=== PATIENT | female | born 1955 | race Caucasian/White ===

== ENCOUNTER → 2018-01-07 | Outpatient (CLI) | payer OTHER ==
[~2018-01-07] MED LIST: ACEDIPPM; ALPR.5 PO; AMOCLA875 PO; ATOM18 PO; ATOM40 PO; ATOM60 PO; Ativan0.5 MG PO; CARI350 PO; CLON.5; CLON.5 PO; CLON1 PO; CODACE30 PO; CYCL10 PO; DIVA500EC; DIVA500EC PO; DIVA500ER PO; DULO60 PO; GABA300; GABA600 PO; HYDACE10B PO; HYDACE5; HYDACE5 PO; HYDACE7.5 PO; HYDCOR2.5C PR; IBUP200 PO; LORA1 PO; METPHE20 PO; NAPR500 PO; OLAN5 PO; OMEP20ER PO; OXYACE5T PO; PANT40 PO; PARO25; PRED10 PO; PROM25 PO; Pepcid40 MG PO; QUET25 PO; RXHYDACE PO; TRAZ100; TRAZ100 PO; TRAZ50 PO; VENL25 PO
[2018-01-07 12:44] LABS: BASOPHILS PERCENT AUTO 0 % (0-2); EOSINOPHILS ABSOLUTE AUTO 0.07 K/mm3 (0.00-0.68); EOSINOPHILS PERCENT AUTO 1 % (0-6); Hemoglobin 12.3 g/dL (11.5-16.0); IMMATURE GRAN ABSOLUTE AUTO 0.04 K/mm3 (0.00-0.10); IMMATURE GRAN PERCENT AUTO 1 % (0-1); LYMPHOCYTES ABSOLUTE AUTO 1.35 K/mm3 (0.84-5.20); LYMPHOCYTES PERCENT AUTO 25 % (21-46); MONOCYTES ABSOLUTE AUTO 0.42 K/mm3 (0.16-1.47); MONOCYTES PERCENT AUTO 8 % (4-13); Mean Corpuscular HGB 28.7 pg (26.0-34.0); Mean Corpuscular HGB Conc 32.4 g/dL (31.5-36.5); Mean Corpuscular Volume 89 fL (80-100); Mean Platelet Volume 9.4 fL (9.1-12.4); NEUTROPHILS ABSOLUTE AUTO 3.61 K/mm3 (1.96-9.15); NEUTROPHILS PERCENT AUTO 66 % (41-73); Platelet Count 298 K/mm3 (150-400); RDW Coefficient Variation 14.9 % (11.7-14.2); RDW Standard Deviation 47.2 fL (35.1-46.3); Red Blood Cell Count 4.28 M/mm3 (3.80-5.20); White Blood Cell Count 5.49 K/mm3 (4.00-11.30)
[2018-01-07 12:56] LABS: Alanine Aminotransfer (ALT/SGP 43 U/L (12-78); Albumin, Blood 3.8 g/dL (3.4-5.0); Albumin/Globulin Ratio 1.1 (0.8-1.8); Alk Phos 144 U/L (40-126); Anion Gap 9 mmol/L (6-16); Aspartate Aminotrans (AST/SGOT 29 U/L (12-37); Bilirubin, Total 0.4 mg/dL (0.1-1.0); Blood Urea Nitrogen 16 mg/dL (8-24); Bun/Creatinine Ratio 17.4 (12.0-20.0); CO2, Blood 27 mmol/L (21-32); Calcium, Blood 9.4 mg/dL (8.5-10.1); Chloride, Blood 105 mmol/L (98-108); Creatinine, Blood 0.92 mg/dL (0.40-1.00); Globulin, Blood 3.6 g/dL (2.2-4.0); Glomerular Filtration Rate >60 (60-); Glucose, Blood 103 mg/dL (70-99); Sodium, Blood 141 mmol/L (136-145); Total Protein, Blood 7.4 g/dL (6.4-8.2); Uric Acid, Blood 6.3 mg/dL (2.6-6.0)
== END ==
LOC: LAB EV 12:39
PROVIDERS: Physician Assistant Medical
DX: L03.119 Cellulitis of unspecified part of limb (principal)
CPT/HCPCS: 80053; 84550; 85025

== ENCOUNTER 2020-08-01 20:48 | Emergency (ER) | payer SELFPAY ==
[~2020-08-01] VITALS: Ht 175.3 cm; Wt 108.9 kg
[~2020-08-01 20:48] MED LIST changes: +ATORVASTATIN CA20 MG; +CYCL10; +HYDHCL25; +LATUDA120 MG; +Lamictal150 MG PO; +PROZAC40 MG
== END 2020-08-01 23:22 | disposition home or self-care (01) ==
LOC: ER 20:48
DX: S01.01XA Laceration without foreign body of scalp, initial encounter (principal); M54.2 Cervicalgia; F31.9 Bipolar disorder, unspecified; F90.9 Attention-deficit hyperactivity disorder, unspecified type; Z88.5 Allergy status to narcotic agent; Z79.899 Other long term (current) drug therapy; W01.198A Fall on same level from slipping, tripping and stumbling with subsequent striking against other object, initial encounter; Y93.89 Activity, other specified
CPT/HCPCS: 12002; 70450; 72125; 99284-25

== ENCOUNTER 2021-06-14 05:25 | Emergency (ER) | payer BC ==
[~2021-06-14] VITALS: Ht 170.2 cm; Wt 104.3 kg
== END 2021-06-14 07:24 | disposition home or self-care (01) ==
LOC: ER 05:25
DX: S67.193A Crushing injury of left middle finger, initial encounter (principal); S68.123A Partial traumatic metacarpophalangeal amputation of left middle finger, initial encounter; G80.8 Other cerebral palsy; Z23 Encounter for immunization; Z88.5 Allergy status to narcotic agent; Z79.899 Other long term (current) drug therapy; W23.0XXA Caught, crushed, jammed, or pinched between moving objects, initial encounter
CPT/HCPCS: 26951; 73120; 90471; 90714; 99283-25

== ENCOUNTER 2021-06-25 11:49 | Emergency (ER) | payer BC ==
[~2021-06-25] VITALS: Ht 172.7 cm; Wt 103.9 kg
== END 2021-06-25 13:56 | disposition home or self-care (01) ==
LOC: ER 11:49
DX: M79.645 Pain in left finger(s) (principal); Z88.5 Allergy status to narcotic agent; Z79.899 Other long term (current) drug therapy
CPT/HCPCS: 73140; 99283-25

== ENCOUNTER 2023-08-12 13:22 | Inpatient (IN) | payer OTHER ==
[~2023-08-12] VITALS: Ht 172.7 cm; Wt 94.4 kg
[~2023-08-12 13:22] MED LIST changes: -CYCL10; -HYDHCL25; +HYDHCL25 PO; -PROZAC40 MG; +PROZAC40 MG PO
[2023-08-12 14:19] LABS: BASOPHILS ABSOLUTE AUTO 0.05 K/mm3 (0.00-0.23); BASOPHILS PERCENT AUTO 0 % (0-2); EOSINOPHILS ABSOLUTE AUTO 0.02 K/mm3 (0.00-0.68); EOSINOPHILS PERCENT AUTO 0 % (0-6); Hematocrit 34.8 % (33.0-51.0); Hemoglobin 11.4 g/dL (11.5-16.0); IMMATURE GRAN ABSOLUTE AUTO 0.13 K/mm3 (0.00-0.10); IMMATURE GRAN PERCENT AUTO 1 % (0-1); LYMPHOCYTES ABSOLUTE AUTO 0.96 K/mm3 (0.84-5.20); LYMPHOCYTES PERCENT AUTO 6 % (21-46); MONOCYTES ABSOLUTE AUTO 0.87 K/mm3 (0.16-1.47); MONOCYTES PERCENT AUTO 6 % (4-13); Mean Corpuscular HGB 29.7 pg (26.0-34.0); Mean Corpuscular HGB Conc 32.8 g/dL (31.5-36.5); Mean Corpuscular Volume 91 fL (80-100); NEUTROPHILS ABSOLUTE AUTO 13.12 K/mm3 (1.96-9.15); NEUTROPHILS PERCENT AUTO 87 % (41-73); Platelet Count 331 K/mm3 (150-400); RDW Coefficient Variation 13.4 % (11.7-14.2); RDW Standard Deviation 44.4 fL (35.1-46.3); Red Blood Cell Count 3.84 M/mm3 (3.80-5.20); White Blood Cell Count 15.15 K/mm3 (4.00-11.30)
[2023-08-12 14:26] LABS: Albumin, Blood 3.5 g/dL (3.4-5.0); Albumin/Globulin Ratio 1.2 (0.8-1.8); Bilirubin, Total 0.4 mg/dL (0.1-1.0); Bun/Creatinine Ratio 6.3 (12.0-20.0); Calcium, Blood 8.8 mg/dL (8.5-10.1); Creatinine, Blood 1.26 mg/dL (0.40-1.00); Globulin, Blood 2.8 g/dL (2.2-4.0); Potassium, Blood 3.8 mmol/L (3.5-5.5); Total Protein, Blood 6.3 g/dL (6.4-8.2)
[2023-08-12 15:53] LABS: Influenza A, PCR NEGATIVE (NEGATIVE); Influenza B, PCR NEGATIVE (NEGATIVE); Resp Syncytial Virus, PCR NEGATIVE (NEGATIVE)
[2023-08-12 15:55] LABS: SARS-Cov-2 (COVID-19) PCR, MMC POSITIVE (NEGATIVE)
[2023-08-12] MEDS ORDERED: ZIPR40 PO (19:25)
[2023-08-12] MEDS ORDERED: HYDHCL25 PO (19:27)
[2023-08-12 20:29] VITALS: BP 136/71
[2023-08-13 01:46] VITALS: BP 130/57
--- NOTE | 2023-08-13 04:29 | NUR ---
SHIFT SUMMARY 67 YR F ADMITTED ON 08/12/23 FOR SEVERE SEPSIS. FULL CODE. NO ACUTE CHANGES THIS SHIFT. PT HAD A SYNCOPE EPISODE WHILE SITTING ON THE BEDSIDE COMMODE. IT WAS WITNESSED BY THE ALTERATION WORKROOM SUPERVISOR WHO SAID THE EPISODE WAS VERY BRIEF. PT APPEARS TO HAVE RESTED COMFORTABLY FOR MOST OF THIS SHIFT. SHE IS PLEASANT AND COOPERATIVE BUT SEEMS A BIT CONFUSED AT TIMES.
[2023-08-13 05:42] LABS: BASOPHILS ABSOLUTE AUTO 0.02 K/mm3 (0.00-0.23); BASOPHILS PERCENT AUTO 0 % (0-2); EOSINOPHILS ABSOLUTE AUTO 0.01 K/mm3 (0.00-0.68); EOSINOPHILS PERCENT AUTO 0 % (0-6); Hematocrit 26.9 % (33.0-51.0); IMMATURE GRAN ABSOLUTE AUTO 0.07 K/mm3 (0.00-0.10); IMMATURE GRAN PERCENT AUTO 1 % (0-1); LYMPHOCYTES ABSOLUTE AUTO 1.31 K/mm3 (0.84-5.20); LYMPHOCYTES PERCENT AUTO 11 % (21-46); MONOCYTES ABSOLUTE AUTO 1.08 K/mm3 (0.16-1.47); MONOCYTES PERCENT AUTO 9 % (4-13); Mean Corpuscular HGB 29.4 pg (26.0-34.0); Mean Corpuscular HGB Conc 33.5 g/dL (31.5-36.5); Mean Corpuscular Volume 88 fL (80-100); NEUTROPHILS ABSOLUTE AUTO 9.22 K/mm3 (1.96-9.15); NEUTROPHILS PERCENT AUTO 79 % (41-73); Platelet Count 220 K/mm3 (150-400); RDW Coefficient Variation 13.6 % (11.7-14.2); RDW Standard Deviation 43.7 fL (35.1-46.3); Red Blood Cell Count 3.06 M/mm3 (3.80-5.20); White Blood Cell Count 11.71 K/mm3 (4.00-11.30)
[2023-08-13 06:06] LABS: Magnesium, Blood 2.1 mg/dL (1.6-2.4)
[2023-08-13 06:07] LABS: Bun/Creatinine Ratio 11.3 (12.0-20.0); Calcium, Blood 8.6 mg/dL (8.5-10.1); Creatinine, Blood 1.15 mg/dL (0.40-1.00); Potassium, Blood 3.7 mmol/L (3.5-5.5)
[2023-08-13 07:17] VITALS: BP 141/67
--- NOTE | 2023-08-13 12:49 | NUR ---
PT CALLED STAFF TO ROOM SHE WAS VOMITING, COMPLETE LINEN CHANGE DONE. ZOFRAN GIVEN ORDERED PER MD. PT ALSO C/O HEADACHE AND EARS HURTING.
--- NOTE | 2023-08-13 13:04 | NUR ---
PT CALLED STAFF TO ROOM SHE WAS VOMITING. PT CLEANED UP, LINEN CHANGE DONE. PLACED CALL TO MD. ORDERS RECEIVED FOR ANTI EMETIC.
[2023-08-13 15:18] VITALS: BP 132/74
--- NOTE | 2023-08-13 18:25 | NUR ---
SHIFT SUMMARY A&O X 3-4 WITH MOMENTS OF FORGETFULNESS THOUGH REORIENTS WELL, VSS. ENCOURAGED PT TO GET UP TO USE EITHER RESTROOM OR BSC WHEN NEEDED. IS 1 PERSON ASSIST WITH FWW. PT HAS BEEN NAUSEATED OFF & ON THIS SHIFT WITH SMALL AMOUNTS OF DARK BROWN TO ALMOST BLACK WATERY EMESIS. IT IS NOTED THAT HER H&H ON ADMIT WAS 11.4 & 39.8 & TODAY'S H&H 9.0 & 26.9. MEDICATED FOR NAUSEA ONCE WITH GOOD RELIEF. IS PLEASANT & COOPERATIVE WITH ALL CARE.
[2023-08-13 19:18] VITALS: BP 159/70
[2023-08-14] VITALS (10 sets, daily range): BP systolic 110–138; BP diastolic 52–64
--- NOTE | 2023-08-14 04:01 | NUR ---
SHIFT SUMMARY ADMITTED FOR NEAR SYNCOPE. FULL CODE. ENHANCED PRECAUTIONS FOR COVID+. ANTIBIOTICS ARE SCHEDULED. NS INFUSING ORDERED. A&O X3-4, FORGETFUL AT TIMES. 1 ASSIST W/FWW - BRP. SHE DID FALL AT HOME, AND HAS BRUISES ON HER BACK. HX: CEREBRAL PALSY
[2023-08-14 06:58] LABS: BASOPHILS ABSOLUTE AUTO 0.02 K/mm3 (0.00-0.23); BASOPHILS PERCENT AUTO 0 % (0-2); EOSINOPHILS ABSOLUTE AUTO 0.03 K/mm3 (0.00-0.68); EOSINOPHILS PERCENT AUTO 0 % (0-6); Hemoglobin 6.6 g/dL (11.5-16.0); IMMATURE GRAN ABSOLUTE AUTO 0.05 K/mm3 (0.00-0.10); IMMATURE GRAN PERCENT AUTO 1 % (0-1); LYMPHOCYTES ABSOLUTE AUTO 1.72 K/mm3 (0.84-5.20); LYMPHOCYTES PERCENT AUTO 21 % (21-46); MONOCYTES PERCENT AUTO 10 % (4-13); Mean Corpuscular HGB 29.6 pg (26.0-34.0); Mean Corpuscular Volume 90 fL (80-100); Mean Platelet Volume 9.2 fL (9.1-12.4); NEUTROPHILS ABSOLUTE AUTO 5.57 K/mm3 (1.96-9.15); NEUTROPHILS PERCENT AUTO 68 % (41-73); Platelet Count 148 K/mm3 (150-400); RDW Coefficient Variation 13.7 % (11.7-14.2); Red Blood Cell Count 2.23 M/mm3 (3.80-5.20); White Blood Cell Count 8.19 K/mm3 (4.00-11.30)
[2023-08-14 07:24] LABS: Albumin, Blood 2.5 g/dL (3.4-5.0); Anion Gap 4 mmol/L (6-16); Blood Urea Nitrogen 15 mg/dL (8-24); Bun/Creatinine Ratio 18.3 (12.0-20.0); CO2, Blood 27 mmol/L (21-32); Calcium, Blood 8.2 mg/dL (8.5-10.1); Chloride, Blood 105 mmol/L (98-108); Creatinine, Blood 0.82 mg/dL (0.40-1.00); Glomerular Filtration Rate 79 (60-); Glucose, Blood 115 mg/dL (70-99); Phosphorus, Blood 2.2 mg/dL (2.5-4.9); Potassium, Blood 4.3 mmol/L (3.5-5.5); Sodium, Blood 136 mmol/L (136-145)
--- NOTE | 2023-08-14 18:49 | NUR ---
SHIFT SUMMARY IS A&O X 4. H&H TODAY 6.6 & 20.0, TRANSFUSED 1 UNIT PRBC'S. FRANK WELL. PT STATED SHE FELT BETTER AFTER TRANSFUSION. DID C/O EPIGASTRIC PAIN AFTER ATTEMPTING TO EAT BFAST. MD REQUESTED GI CONSULT PER AN ORDER. GI DOC, DR. CARSON CONTACTED AND IS AWARE. PT TO BE NPO AFTER MN FOR POSSIBLE GI PROCEDURE IN THE AM. IV PROTONIX PUSHES ORDERED AND GIVEN, PT STATES SHE FEELS BETTER AFTER INITIATING PROTONIX. PT DID STATE THOUGH THAT SHE JUST PREFERRED TO HAVE ICE CHIPS, JELLO & PUDDING TO AVOID STOMACH UPSET. PT IS STDBY ASSIST W/FWW WHEN UP FOR RESTROOM USE. IS PLEASANT & COOPERATIVE WITH ALL CARE. IS [place]. PLAN IS FOR DC HOME WHEN CLINICALLY STABLE. BED IS IN LOW POSITION, CALL LIGHT WITHIN REACH. REPOSITIONED PT OFF & ON TODAY FOR COMFORT.
[2023-08-15] VITALS (18 sets, daily range): BP systolic 91–159; BP diastolic 46–114
--- NOTE | 2023-08-15 07:32 | NUR ---
Shift Summary Pt NPO since 0000 in anticipation for scope procedure today to investigate possible GI bleed. No c/o of chest or epigastric pain t/o shift, although she did c/o pain in her back and L shoulder. Purewick in place t/o the night draining urine. Pt in contact precautions for Covid. AOx4, pleasant and cooperative.
[2023-08-15 08:57] LABS: BASOPHILS ABSOLUTE AUTO 0.05 K/mm3 (0.00-0.23); BASOPHILS PERCENT AUTO 1 % (0-2); EOSINOPHILS ABSOLUTE AUTO 0.12 K/mm3 (0.00-0.68); EOSINOPHILS PERCENT AUTO 2 % (0-6); Hematocrit 19.1 % (33.0-51.0); Hemoglobin 6.2 g/dL (11.5-16.0); IMMATURE GRAN ABSOLUTE AUTO 0.08 K/mm3 (0.00-0.10); IMMATURE GRAN PERCENT AUTO 1 % (0-1); LYMPHOCYTES ABSOLUTE AUTO 1.19 K/mm3 (0.84-5.20); LYMPHOCYTES PERCENT AUTO 17 % (21-46); MONOCYTES ABSOLUTE AUTO 0.69 K/mm3 (0.16-1.47); MONOCYTES PERCENT AUTO 10 % (4-13); Mean Corpuscular HGB 30.2 pg (26.0-34.0); Mean Corpuscular HGB Conc 32.5 g/dL (31.5-36.5); Mean Corpuscular Volume 93 fL (80-100); Mean Platelet Volume 9.2 fL (9.1-12.4); NEUTROPHILS ABSOLUTE AUTO 4.77 K/mm3 (1.96-9.15); NEUTROPHILS PERCENT AUTO 69 % (41-73); Platelet Count 139 K/mm3 (150-400); RDW Coefficient Variation 13.8 % (11.7-14.2); RDW Standard Deviation 46.5 fL (35.1-46.3); Red Blood Cell Count 2.05 M/mm3 (3.80-5.20)
--- NOTE | 2023-08-15 12:15 | NUR ---
08/15/23 1215 Evonne Horner HISTORY, CHART, MEDICATIONS AND ALLERGIES REVIEWED BEFORE START O PROCEDURE. PATIENT CONFIRMS NPO STATUS AND AGREES WITH SCHEDULED PROCEDURE. 3-LEAD EKG REVIEWED WITH PHYSICIAN PRIOR TO START OF PROCEDURE. MONITOR INTACT WITH CONTINUOUS PULSE OXIMETRY,CAPNOGRAPHY, 3-LEAD EKG, INTERMITTENT BP. SUPPLEMENTAL O2 TO BE TITRATED THROUGHOUT PROCEDURE TO MAINTAIN O2 SATURATION ABOVE 90%. PATIENT DETERMINED TO BE ASA APPROPRIATE FOR PROPOFOL SEDATION PRIOR TO START OF PROCEDURE BY DR. CARSON
--- NOTE | 2023-08-15 12:17 | NUR ---
RN TO GET PT READY IN ROOM FOR PROCEDURE. PT BROUGHT STRAIGHT TO PROCEDURE ENDO ROOM ONE IN DAY SURGERY.
[2023-08-15 13:54] LABS: Albumin, Blood 2.4 g/dL (3.4-5.0); Bilirubin, Direct 0.1 mg/dL (0.0-0.3); Bilirubin, Indirect 0.3 mg/dL (0.1-0.7); Bilirubin, Total 0.4 mg/dL (0.1-1.0); Globulin, Blood 2.5 g/dL (2.2-4.0); Total Protein, Blood 4.9 g/dL (6.4-8.2)
--- NOTE | 2023-08-15 18:06 | NUR ---
SHIFT SUMMARY PT RESTING QUIETLY AT START OF SHIFT. A&O, PLEASANT AND CO-OP. NPO AT START OF SHIFT FOR EGD. PT TAKEN DOWN THIS AFTERNOON AND RETURNED SHORTLY AFTERWARD. PT TOLERATED PROCEDURE WELL. PER REPORT, PT CLEARED TO EAT AND DRINK. DR RIVAS PLACED TX'S ORDERS FOR 2 UNITS PRBC'S. FIRST UNIT TX'D WITHOUT DIFFICULTY. 2ND UNIT TO BE STARTED SOON. PT CURRENTLY SITTING UP EATING DINNER. NO C/O. HOPING TO GO HOME SOON. CALL LT IN REACH.
[2023-08-16] VITALS (16 sets, daily range): BP systolic 109–137; BP diastolic 48–72
[2023-08-16 05:17] LABS: BASOPHILS ABSOLUTE AUTO 0.07 K/mm3 (0.00-0.23); BASOPHILS PERCENT AUTO 1 % (0-2); EOSINOPHILS PERCENT AUTO 2 % (0-6); Hematocrit 21.6 % (33.0-51.0); Hemoglobin 7.2 g/dL (11.5-16.0); IMMATURE GRAN ABSOLUTE AUTO 0.13 K/mm3 (0.00-0.10); IMMATURE GRAN PERCENT AUTO 2 % (0-1); LYMPHOCYTES PERCENT AUTO 21 % (21-46); MONOCYTES ABSOLUTE AUTO 0.76 K/mm3 (0.16-1.47); MONOCYTES PERCENT AUTO 9 % (4-13); Mean Corpuscular HGB 30.3 pg (26.0-34.0); Mean Corpuscular HGB Conc 33.3 g/dL (31.5-36.5); Mean Corpuscular Volume 91 fL (80-100); Mean Platelet Volume 9.4 fL (9.1-12.4); NEUTROPHILS ABSOLUTE AUTO 5.42 K/mm3 (1.96-9.15); NEUTROPHILS PERCENT AUTO 66 % (41-73); NRBC ABSOLUTE 0.07 K/mm3 (0.00-0.02); NRBC Auto 0.8 /100 WBC (0.0-0.2); Platelet Count 155 K/mm3 (150-400); RDW Coefficient Variation 14.3 % (11.7-14.2); RDW Standard Deviation 45.7 fL (35.1-46.3); Red Blood Cell Count 2.38 M/mm3 (3.80-5.20); White Blood Cell Count 8.28 K/mm3 (4.00-11.30)
--- NOTE | 2023-08-16 06:35 | NUR ---
Shift Summary Pt rcv'd a 2nd unit of PRBC this shift, well tolerated with no adverse reactions. This AM her Hgb is 7.2, up from 6.2 yesterday morning. Pt c/o heartburn after meals, gave PRN tums. She rcvd IV Protonix this AM. Low urine output this shift, about 200 mL of dark urine. NS running at 100 mL/hr. Pt AOx4, [place] without her hearing aids which are at home. Pt remained in bed t/o shift, slept well through most of the night, purewick in place draining urine.
[2023-08-16 06:48] LABS: Albumin, Blood 2.4 g/dL (3.4-5.0); Albumin/Globulin Ratio 0.9 (0.8-1.8); Bilirubin, Total 0.4 mg/dL (0.1-1.0); Bun/Creatinine Ratio 14.2 (12.0-20.0); Calcium, Blood 7.9 mg/dL (8.5-10.1); Creatinine, Blood 0.78 mg/dL (0.40-1.00); Globulin, Blood 2.6 g/dL (2.2-4.0)
[2023-08-16 15:36] LABS: Hematocrit 20.8 % (33.0-51.0); Hemoglobin 6.9 g/dL (11.5-16.0)
--- NOTE | 2023-08-16 17:30 | NUR ---
SHIFT SUMMARY PATIENT C/O MILD DIZZINESS WHEN UPRIGHT THIS SHIFT, H&H CONTINUE TO DROP. DOC AWARE, ORDERED ONE UNIT OF BLOOD THAT HAS YET TO BE GIVEN. VSS, NO COUGH OR RESPIRATORY DISTRESS. BED BATH THIS SHIFT AND UP TO CHAIR WITH ASSISTANCE. WILL CONTINUE TO MONITOR
--- NOTE | 2023-08-17 03:13 | NUR ---
DRYWALL APPLICATION SUPERVISOR SUMMARY VSS. HGB WAS 6.9 AT HS, MD ORDERED ONE UNIT OF PRBC TO BE ADMINISTERED. BLOOD WAS ADMINISTERED, NO NOTED ADVERSE REACTIONS. AWAITING FOLLOW UP LABS RE H/H FOR RESULTS. REMAINS IN ENHANCED PRECAUTIONS FOR COVID. ALERT AND ORIENTED. HAS BEEN RESTING QUIETLY WITH OCCASIONAL INTERRUPTIONS TO GO TO THE BATHROOM. CALL LIGHT IN REACH. WILL CONTINUE TO MONITOR
[2023-08-17 03:24] VITALS: BP 144/61
[2023-08-17 05:18] LABS: BASOPHILS ABSOLUTE AUTO 0.05 K/mm3 (0.00-0.23); BASOPHILS PERCENT AUTO 1 % (0-2); EOSINOPHILS ABSOLUTE AUTO 0.22 K/mm3 (0.00-0.68); EOSINOPHILS PERCENT AUTO 3 % (0-6); Hematocrit 22.5 % (33.0-51.0); Hemoglobin 7.5 g/dL (11.5-16.0); IMMATURE GRAN ABSOLUTE AUTO 0.14 K/mm3 (0.00-0.10); IMMATURE GRAN PERCENT AUTO 2 % (0-1); LYMPHOCYTES ABSOLUTE AUTO 1.48 K/mm3 (0.84-5.20); LYMPHOCYTES PERCENT AUTO 19 % (21-46); MONOCYTES ABSOLUTE AUTO 0.81 K/mm3 (0.16-1.47); MONOCYTES PERCENT AUTO 11 % (4-13); Mean Corpuscular HGB 29.8 pg (26.0-34.0); Mean Corpuscular HGB Conc 33.3 g/dL (31.5-36.5); Mean Corpuscular Volume 89 fL (80-100); Mean Platelet Volume 9.2 fL (9.1-12.4); NEUTROPHILS ABSOLUTE AUTO 4.93 K/mm3 (1.96-9.15); NEUTROPHILS PERCENT AUTO 65 % (41-73); NRBC ABSOLUTE 0.03 K/mm3 (0.00-0.02); NRBC Auto 0.4 /100 WBC (0.0-0.2); Platelet Count 163 K/mm3 (150-400); RDW Coefficient Variation 14.5 % (11.7-14.2); RDW Standard Deviation 45.7 fL (35.1-46.3); Red Blood Cell Count 2.52 M/mm3 (3.80-5.20); White Blood Cell Count 7.63 K/mm3 (4.00-11.30)
[2023-08-17 05:49] LABS: Albumin, Blood 2.4 g/dL (3.4-5.0); Anion Gap 4 mmol/L (6-16); Blood Urea Nitrogen 12 mg/dL (8-24); Bun/Creatinine Ratio 17.4 (12.0-20.0); CO2, Blood 26 mmol/L (21-32); Calcium, Blood 8.3 mg/dL (8.5-10.1); Chloride, Blood 106 mmol/L (98-108); Creatinine, Blood 0.69 mg/dL (0.40-1.00); Glomerular Filtration Rate 96 (60-); Glucose, Blood 115 mg/dL (70-99); Phosphorus, Blood 2.9 mg/dL (2.5-4.9); Potassium, Blood 3.8 mmol/L (3.5-5.5); Sodium, Blood 136 mmol/L (136-145)
[2023-08-17 07:26] VITALS: BP 137/75
[2023-08-17 14:32] LABS: Hematocrit 22.6 % (33.0-51.0); Hemoglobin 7.7 g/dL (11.5-16.0)
[2023-08-17] MEDS ORDERED: PANT20 PO (15:09)
--- NOTE | 2023-08-17 17:07 | NUR ---
DISCHARGE SUMMARY PATIENT DISCHARGED THIS SHIFT, IV'S REMOVED PRIOR TO DISCHARGE. LEFT VIA WHEELCHAIR WITH SPOUSE DRIVING. DISCHARGE PACKET GIVEN AND DISCUSSED, VERBALIZED UNDERSTANDING. FAXED MEDS TO [facility] ISN'T OPEN ON FRIDAY.
== END 2023-08-17 15:55 | disposition home or self-care (01) | DRG 871 ==
LOC: ER 13:22 → MEDS 19:51 → ENPENDDIS 08-17 14:51 → MEDS 08-17 15:55
PROVIDERS: Emergency Medicine; Family Medicine; Nurse Practitioner Acute Care; Student in an Organized Health Care Education/Training Program; ADMIT Internal Medicine
PROC: 3E03329 Introduction of Other Anti-infective into Peripheral Vein, Percutaneous Approach (ICD-10-PCS; 2023-08-13)
PROC: 0DJ08ZZ Inspection of Upper Intestinal Tract, Via Natural or Artificial Opening Endoscopic (ICD-10-PCS; 2023-08-15)
PROC: 30233N1 Transfusion of Nonautologous Red Blood Cells into Peripheral Vein, Percutaneous Approach (ICD-10-PCS; principal; 2023-08-16)
DX: A41.89 Other specified sepsis (principal); U07.1 COVID-19; S22.069A Unspecified fracture of T7-T8 vertebra, initial encounter for closed fracture; K22.10 Ulcer of esophagus without bleeding; N17.9 Acute kidney failure, unspecified; E87.1 Hypo-osmolality and hyponatremia; R65.20 Severe sepsis without septic shock; G80.9 Cerebral palsy, unspecified; F31.9 Bipolar disorder, unspecified; W18.30XA Fall on same level, unspecified, initial encounter; J44.9 Chronic obstructive pulmonary disease, unspecified; D64.9 Anemia, unspecified; F90.9 Attention-deficit hyperactivity disorder, unspecified type; D69.6 Thrombocytopenia, unspecified; M51.36 Other intervertebral disc degeneration, lumbar region; F43.10 Post-traumatic stress disorder, unspecified; K21.00 Gastro-esophageal reflux disease with esophagitis, without bleeding; M19.90 Unspecified osteoarthritis, unspecified site; R13.10 Dysphagia, unspecified; Z96.653 Presence of artificial knee joint, bilateral; Z88.5 Allergy status to narcotic agent; Z79.899 Other long term (current) drug therapy
CPT/HCPCS: 0241U; 36415; 36430; 71045; 72070; 72100; 80048; 80053; 80069; 80076; 82272; 83605; 83735; 84145; 85014; 85018; 85025; 86850; 86900; 86901; 86923; 87040; 93005; 93010; 96361; 96365; 96375; 97110-CQ; 97162; 97530; 99285-25; A9270; C9113; J0456; J0696; J1644; J2405; J2704; J7030; J7040; J7050; J7120; P9016

== ENCOUNTER 2023-09-05 01:13 | Emergency (ER) | payer OTHER ==
[~2023-09-05] VITALS: Ht 170.2 cm; Wt 93.9 kg
[~2023-09-05 01:13] MED LIST changes: +PANT20 PO; +ZIPR40 PO
[2023-09-05] MEDS ORDERED: CYCL10 PO (01:30)
[2023-09-05 02:53] LABS: BASOPHILS ABSOLUTE AUTO 0.09 K/mm3 (0.00-0.23); BASOPHILS PERCENT AUTO 1 % (0-2); EOSINOPHILS ABSOLUTE AUTO 0.38 K/mm3 (0.00-0.68); EOSINOPHILS PERCENT AUTO 5 % (0-6); Hematocrit 31.9 % (33.0-51.0); Hemoglobin 10.1 g/dL (11.5-16.0); IMMATURE GRAN ABSOLUTE AUTO 0.05 K/mm3 (0.00-0.10); IMMATURE GRAN PERCENT AUTO 1 % (0-1); LYMPHOCYTES ABSOLUTE AUTO 1.23 K/mm3 (0.84-5.20); LYMPHOCYTES PERCENT AUTO 15 % (21-46); MONOCYTES ABSOLUTE AUTO 0.86 K/mm3 (0.16-1.47); MONOCYTES PERCENT AUTO 11 % (4-13); Mean Corpuscular HGB Conc 31.7 g/dL (31.5-36.5); Mean Corpuscular Volume 92 fL (80-100); Mean Platelet Volume 8.7 fL (9.1-12.4); NEUTROPHILS ABSOLUTE AUTO 5.39 K/mm3 (1.96-9.15); NEUTROPHILS PERCENT AUTO 67 % (41-73); Platelet Count 482 K/mm3 (150-400); RDW Coefficient Variation 16.1 % (11.7-14.2); RDW Standard Deviation 54.1 fL (35.1-46.3); Red Blood Cell Count 3.48 M/mm3 (3.80-5.20)
[2023-09-05 03:27] LABS: Albumin, Blood 2.8 g/dL (3.4-5.0); Albumin/Globulin Ratio 0.8 (0.8-1.8); Bilirubin, Total 0.5 mg/dL (0.1-1.0); Bun/Creatinine Ratio 26.5 (12.0-20.0); Calcium, Blood 8.6 mg/dL (8.5-10.1); Creatinine, Blood 0.64 mg/dL (0.40-1.00); Globulin, Blood 3.4 g/dL (2.2-4.0); Potassium, Blood 4.2 mmol/L (3.5-5.5); Thyroid Stimulating Hormone 1.48 uIU/mL (0.360-4.800); Total Protein, Blood 6.2 g/dL (6.4-8.2)
[2023-09-05 03:36] LABS: Influenza A, PCR NEGATIVE (NEGATIVE); Influenza B, PCR NEGATIVE (NEGATIVE); Resp Syncytial Virus, PCR NEGATIVE (NEGATIVE); SARS-Cov-2 (COVID-19) PCR, MMC NEGATIVE (NEGATIVE)
[2023-09-05 06:00] VITALS: BP 154/76
== END 2023-09-05 06:48 | disposition home or self-care (01) ==
LOC: ER 01:13
PROVIDERS: Emergency Medicine
DX: S22.32XA Fracture of one rib, left side, initial encounter for closed fracture (principal); S22.081A Stable burst fracture of T11-T12 vertebra, initial encounter for closed fracture; J12.9 Viral pneumonia, unspecified; J02.9 Acute pharyngitis, unspecified; Z88.5 Allergy status to narcotic agent; Z20.822 Contact with and (suspected) exposure to COVID-19; W18.30XA Fall on same level, unspecified, initial encounter
CPT/HCPCS: 0241U; 71046; 71260; 80053; 83690; 84443; 84484; 85025; 85379; 87081; 87430; 93005; 93010; 96374-59; 99284-25; A9270; J1100; Q9967

== ENCOUNTER 2024-08-09 09:32 | Emergency (ER) | payer OTHER ==
[~2024-08-09] VITALS: Ht 170.2 cm; Wt 99.8 kg
[2024-08-09] MEDS ORDERED: Prazosin HCl1 MG PO (09:41)
[2024-08-09] MEDS ORDERED: LOSA50 PO (09:41)
[2024-08-09] MEDS ORDERED: Diphth,Pertuss(Acell),Tet Vac 0.5 ML VIAL IM ONE (09:55)
[2024-08-09 11:41] VITALS: BP 153/91
== END 2024-08-09 12:09 | disposition home or self-care (01) ==
LOC: ER 09:32
DX: S31.010A Laceration without foreign body of lower back and pelvis without penetration into retroperitoneum, initial encounter (principal); W01.110A Fall on same level from slipping, tripping and stumbling with subsequent striking against sharp glass, initial encounter; G80.9 Cerebral palsy, unspecified; Z88.5 Allergy status to narcotic agent; Z79.899 Other long term (current) drug therapy; Z87.891 Personal history of nicotine dependence
CPT/HCPCS: 12001; 71046; 99283-25

== ENCOUNTER 2024-08-24 09:54 | Emergency (ER) | payer OTHER ==
[~2024-08-24] VITALS: Ht 170.2 cm; Wt 99.8 kg
[~2024-08-24 09:54] MED LIST changes: +LOSA50 PO; +Prazosin HCl1 MG PO
[2024-08-24 10:30] VITALS: BP 154/90
[2024-08-24] MEDS ORDERED: Acetaminophen 500 MG Tab PO ONE (12:10)
== END 2024-08-24 12:17 | disposition home or self-care (01) ==
LOC: ER 09:54
DX: S00.31XA Abrasion of nose, initial encounter (principal); S00.81XA Abrasion of other part of head, initial encounter; G47.30 Sleep apnea, unspecified; Z87.891 Personal history of nicotine dependence; Z79.899 Other long term (current) drug therapy; Z88.5 Allergy status to narcotic agent; W01.0XXA Fall on same level from slipping, tripping and stumbling without subsequent striking against object, initial encounter
CPT/HCPCS: 70450; 99283-25; A9270

== ENCOUNTER 2025-06-06 14:14 | Emergency (ER) | payer OTHER ==
[~2025-06-06] VITALS: Ht 170.2 cm; Wt 91.2 kg
[2025-06-06 15:16] LABS: BASOPHILS ABSOLUTE AUTO 0.05 K/mm3 (0.00-0.23); BASOPHILS PERCENT AUTO 1 % (0-2); EOSINOPHILS ABSOLUTE AUTO 0.07 K/mm3 (0.00-0.68); EOSINOPHILS PERCENT AUTO 1 % (0-6); Hematocrit 37.4 % (33.0-51.0); Hemoglobin 12.4 g/dL (11.5-16.0); IMMATURE GRAN ABSOLUTE AUTO 0.01 K/mm3 (0.00-0.10); IMMATURE GRAN PERCENT AUTO 0 % (0-1); LYMPHOCYTES ABSOLUTE AUTO 1.45 K/mm3 (0.84-5.20); LYMPHOCYTES PERCENT AUTO 25 % (21-46); MONOCYTES ABSOLUTE AUTO 0.50 K/mm3 (0.16-1.47); MONOCYTES PERCENT AUTO 9 % (4-13); Mean Corpuscular HGB Conc 33.2 g/dL (31.5-36.5); Mean Corpuscular Volume 91 fL (80-100); NEUTROPHILS ABSOLUTE AUTO 3.70 K/mm3 (1.96-9.15); NEUTROPHILS PERCENT AUTO 64 % (41-73); NRBC ABSOLUTE 0.00 K/mm3 (0.00-0.02); NRBC Auto 0.0 /100 WBC (0.0-0.2); Platelet Count 285 K/mm3 (150-400); RDW Coefficient Variation 13.3 % (11.7-14.2); RDW Standard Deviation 44.8 fL (35.1-46.3)
[2025-06-06 15:55] LABS: Alanine Aminotransfer (ALT/SGP 18.0 U/L (12-78); Albumin, Blood 3.7 g/dL (3.4-5.0); Albumin/Globulin Ratio 1.1 (0.8-1.8); Anion Gap 6.0 mmol/L (3-11); Aspartate Aminotrans (AST/SGOT 22.0 U/L (12-37); Bilirubin, Total 0.3 mg/dL (0.1-1.0); Blood Urea Nitrogen 14.0 mg/dL (8-24); CO2, Blood 30.0 mmol/L (21-32); Calcium, Blood 9.1 mg/dL (8.5-10.1); Chloride, Blood 104.0 mmol/L (98-108); Creatinine, Blood 0.84 mg/dL (0.40-1.00); Globulin, Blood 3.4 g/dL (2.2-4.0); Glucose, Blood 94.0 mg/dL (70-99); Potassium, Blood 3.9 mmol/L (3.5-5.5); Sodium, Blood 136.0 mmol/L (136-145); Total Protein, Blood 7.1 g/dL (6.4-8.2)
[2025-06-06 16:44] VITALS: BP 141/74
== END 2025-06-06 17:09 | disposition home or self-care (01) ==
LOC: ER 14:14
PROVIDERS: Physician Assistant
DX: K30 Functional dyspepsia (principal); K44.9 Diaphragmatic hernia without obstruction or gangrene; Z79.899 Other long term (current) drug therapy; Z88.5 Allergy status to narcotic agent; Z87.891 Personal history of nicotine dependence; Z96.653 Presence of artificial knee joint, bilateral
CPT/HCPCS: 71046; 80053; 85025; 99283-25

== ENCOUNTER 2025-08-23 08:01 | Day surgery (SDC) | payer OTHER ==
[~2025-08-23] VITALS: Ht 167.6 cm; Wt 91.3 kg
--- NOTE | 2025-08-23 10:41 | NUR ---
TO SDS VIA WC, CHANGED WITH ASSIST. History, Chart, Medications and Allergies reviewed before start of procedure. Lungs clear T/O to Auscultation. Patient confirms NPO status and agrees with scheduled surgery. Pre-Op teaching done. Pt verbalizes understanding. Patient States Post-Procedure ride home has been arranged.
--- NOTE | 2025-08-23 11:24 | NUR ---
08/23/25 1124 Christin Smith CONFIRMED AND REVIEWED H&P, MEDCICATIONS, ALLERGIES, MEDICAL HISTORY, RESPIRATORY HISTORY, VITAL SIGNS, 3-LEAD EKG, CONSENTS, AND PHYSICIAN ORDERS. PATIENT CONFIRMS NPO STATUS AND AGREES WITH SCHEDULED PROCEDURE. MONITOR INTACT WITH CONTINUOUS PULSE OXIMETRY, CAPNOGRAPHY, 3-LEAD EKG, INTERMITTENT BP. SUPPLEMENTAL O2 TO BE TITRATED THROUGHOUT PROCEDURE TO MAINTAIN O2 SATURATION ABOVE 90%. PATIENT DETERMINED TO BE ASA APPROPRIATE FOR MAC-SEE ANESTHESIA RECORD.
[2025-08-23 11:39] VITALS: BP 132/86
[2025-08-23 11:55] VITALS: BP 123/77
--- NOTE | 2025-08-23 12:15 | NUR ---
Discharge instructions reviewed with patient. Patient verbalizes understanding. Copy given to patient to take home. Patient States Post-Procedure ride home has been arranged. Discharged via wheelchair to private car for ride home.
== END 2025-08-23 12:15 | disposition home or self-care (01) ==
LOC: ORSCMMR 08:01
PROVIDERS: Surgery
PROC: 0DB68ZX Excision of Stomach, Via Natural or Artificial Opening Endoscopic, Diagnostic (ICD-10-PCS; principal; 2025-08-23 11:00)
DX: K21.00 Gastro-esophageal reflux disease with esophagitis, without bleeding (principal); K44.9 Diaphragmatic hernia without obstruction or gangrene; F90.9 Attention-deficit hyperactivity disorder, unspecified type; F41.9 Anxiety disorder, unspecified; F31.9 Bipolar disorder, unspecified; G80.9 Cerebral palsy, unspecified; G47.33 Obstructive sleep apnea (adult) (pediatric); E78.5 Hyperlipidemia, unspecified; Z87.891 Personal history of nicotine dependence; Z79.899 Other long term (current) drug therapy
CPT/HCPCS: 88305; 88342; J2704; J7120

== ENCOUNTER 2025-10-31 20:19 | Emergency (ER) | payer OTHER ==
[~2025-10-31] VITALS: Ht 170.2 cm; Wt 90.7 kg
[2025-10-31 20:22] VITALS: BP 158/98
[2025-10-31 20:56] LABS: BASOPHILS ABSOLUTE AUTO 0.07 K/mm3 (0.00-0.23); BASOPHILS PERCENT AUTO 1 % (0-2); EOSINOPHILS ABSOLUTE AUTO 0.11 K/mm3 (0.00-0.68); EOSINOPHILS PERCENT AUTO 2 % (0-6); Hematocrit 35.7 % (33.0-51.0); Hemoglobin 11.7 g/dL (11.5-16.0); IMMATURE GRAN ABSOLUTE AUTO 0.02 K/mm3 (0.00-0.10); IMMATURE GRAN PERCENT AUTO 0 % (0-1); LYMPHOCYTES ABSOLUTE AUTO 1.54 K/mm3 (0.84-5.20); LYMPHOCYTES PERCENT AUTO 23 % (21-46); MONOCYTES ABSOLUTE AUTO 0.50 K/mm3 (0.16-1.47); MONOCYTES PERCENT AUTO 8 % (4-13); Mean Corpuscular HGB Conc 32.8 g/dL (31.5-36.5); Mean Corpuscular Volume 88 fL (80-100); NEUTROPHILS ABSOLUTE AUTO 4.37 K/mm3 (1.96-9.15); NEUTROPHILS PERCENT AUTO 66 % (41-73); NRBC ABSOLUTE 0.00 K/mm3 (0.00-0.02); NRBC Auto 0.0 /100 WBC (0.0-0.2); Platelet Count 248 K/mm3 (150-400); RDW Coefficient Variation 13.6 % (11.7-14.2); RDW Standard Deviation 43.8 fL (35.1-46.3)
[2025-10-31 21:11] LABS: Prothrombin Time Results 10.6 Sec (9.7-11.5)
[2025-10-31 21:25] LABS: Alanine Aminotransfer (ALT/SGP 20.0 U/L (12-78); Albumin, Blood 3.8 g/dL (3.4-5.0); Albumin/Globulin Ratio 1.2 (0.8-1.8); Anion Gap 10.0 mmol/L (3-11); Aspartate Aminotrans (AST/SGOT 19.0 U/L (12-37); Bilirubin, Total 0.4 mg/dL (0.1-1.0); Blood Urea Nitrogen 12.0 mg/dL (8-24); CO2, Blood 26.0 mmol/L (21-32); Calcium, Blood 8.7 mg/dL (8.5-10.1); Chloride, Blood 102.0 mmol/L (98-108); Creatinine, Blood 0.92 mg/dL (0.40-1.00); Globulin, Blood 3.1 g/dL (2.2-4.0); Glucose, Blood 80.0 mg/dL (70-99); Potassium, Blood 3.6 mmol/L (3.5-5.5); Sodium, Blood 134.0 mmol/L (136-145); Total Protein, Blood 6.9 g/dL (6.4-8.2)
== END 2025-11-01 01:08 | disposition home or self-care (01) ==
LOC: ER 20:19
PROVIDERS: Student in an Organized Health Care Education/Training Program
DX: K20.90 Esophagitis, unspecified without bleeding (principal); G47.30 Sleep apnea, unspecified; Z87.891 Personal history of nicotine dependence
CPT/HCPCS: 80053; 83690; 85025; 85610; 85730; 86850; 86870; 86900; 86901; 99283